=== PATIENT | male | born 1990 | race Hispanic/Latino ===

== ENCOUNTER → 2024-03-10 | Outpatient (CLI) | payer OTHER | END | disposition home or self-care (01) | LOC: RAH 12:36 | PROVIDERS: ATTEND Internal Medicine | DX: R13.10 Dysphagia, unspecified (principal); R63.30 Feeding difficulties, unspecified | CPT/HCPCS: 74230; 92611 ==

== ENCOUNTER → 2025-04-21 | Outpatient (CLI) | payer OTHER ==
--- NOTE | 2025-04-23 02:11 | HMCIMG ---
EXAM: HIDA scan. INDICATION: Intermittent RUQ Pain for the last 05 years. REFERENCE EXAMINATION: None. TECHNIQUE: Sequential images of the abdomen were obtained in the anterior projection after IV administration of 6.0 mCi of Tc99m Mebrofenin. FINDINGS: Tracer activity throughout the liver is homogeneous without focal defects. There is prompt excretion of the pharmaceutical into the bile ducts and into the small bowel, without evidence of obstruction. There is no visualization of the gallbladder at the conclusion of the examination. IMPRESSION: Scintigraphic findings are compatible with acute cholecystitis. /[place]
== END | disposition home or self-care (01) ==
LOC: RAH 10:34
PROVIDERS: ATTEND Internal Medicine Gastroenterology
DX: R10.11 Right upper quadrant pain (principal)
CPT/HCPCS: 78226; A9537